=== PATIENT | female | born 1965 | race Native Hawaiian/Other Pacific Islander ===

== ENCOUNTER 2016-12-25 14:24 | Emergency (ER) | payer OTHER ==
[~2016-12-25] VITALS: Ht 157.5 cm; Wt 81.6 kg
[~2016-12-25 14:24] MED LIST: ALTOPREV20 MG PO; ATEN50TA36 PO; CLARITIN10 MG PO; LISITAB PO; METF500T PO
[2016-12-25 16:09] LABS: PLATELET COUNT 232 K/uL (152-353)
[2016-12-25 16:12] LABS: POTASSIUM 3.5 mmol/L (3.6-5.2)
[2016-12-25 18:13] VITALS: BP 104/55; TEMP 97.4
== END 2016-12-25 18:14 | disposition home or self-care (01) ==
LOC: ED 14:24
DX: K80.20 Calculus of gallbladder without cholecystitis without obstruction (principal)
CPT/HCPCS: 36415; 80053; 85027; 96360; 99284; Q9963

== ENCOUNTER 2017-01-02 09:11 | Day surgery (SDC) | payer OTHER ==
[~2017-01-02] VITALS: Ht 30.5 cm; Wt 0.5 kg
[2017-01-02 10:31] LABS: PLATELET COUNT 302 K/uL (152-353)
[2017-01-02 11:09] LABS: POTASSIUM 3.7 mmol/L (3.6-5.2); SODIUM 135 mmol/L (136-145)
== END 2017-01-02 13:52 | disposition home or self-care (01) ==
LOC: OR 09:11
PROVIDERS: Student in an Organized Health Care Education/Training Program
PROC: 0FT44ZZ Resection of Gallbladder, Percutaneous Endoscopic Approach (ICD-10-PCS; principal; 2017-01-02)
DX: K80.10 Calculus of gallbladder with chronic cholecystitis without obstruction (principal)
CPT/HCPCS: 80053; 85027; 85610; 85730; J0690; J1170; J2001; J2405; J2704; J2710; J3010; J3490

== ENCOUNTER 2019-02-19 09:49 | Outpatient (CLI) | payer OTHER | END 2019-02-19 23:43 | disposition home or self-care (01) | LOC: US 09:49 | DX: R10.31 Right lower quadrant pain (principal) ==

== ENCOUNTER 2019-04-09 13:14 | Outpatient (CLI) | payer OTHER | END 2019-04-09 23:19 | disposition home or self-care (01) | LOC: RAD 13:14 | DX: M54.9 Dorsalgia, unspecified (principal); F41.9 Anxiety disorder, unspecified; G47.00 Insomnia, unspecified ==

== ENCOUNTER 2019-11-23 20:33 | Emergency (ER) | payer OTHER ==
[~2019-11-23] VITALS: Ht 157.5 cm; Wt 81.6 kg
[2019-11-23 21:56] LABS: PLATELET COUNT 241 K/uL (152-353)
[2019-11-23 22:04] LABS: POTASSIUM 3.7 mmol/L (3.6-5.2); SODIUM 139 mmol/L (136-145)
[2019-11-23 22:39] VITALS: BP 118/56; TEMP 98.7
== END 2019-11-23 22:42 | disposition home or self-care (01) ==
LOC: ED 20:33
PROVIDERS: Emergency Medicine
DX: R07.89 Other chest pain (principal); K21.9 Gastro-esophageal reflux disease without esophagitis
CPT/HCPCS: 80053; 82550; 82553; 84484; 85027; 93005; 99283

== ENCOUNTER 2020-04-30 08:35 | Outpatient (CLI) | payer OTHER | END 2020-04-30 19:27 | disposition home or self-care (01) | LOC: RAD 08:35 | DX: E11.9 Type 2 diabetes mellitus without complications (principal); I10 Essential (primary) hypertension; K21.9 Gastro-esophageal reflux disease without esophagitis; E78.5 Hyperlipidemia, unspecified; M25.519 Pain in unspecified shoulder; M54.9 Dorsalgia, unspecified; M41.9 Scoliosis, unspecified; G62.9 Polyneuropathy, unspecified ==

== ENCOUNTER 2022-08-15 10:33 | Outpatient (CLI) | payer OTHER | END 2022-08-15 19:23 | disposition home or self-care (01) | LOC: RAD 10:33 | PROVIDERS: ATTEND Nurse Practitioner Family | DX: M54.2 Cervicalgia (principal); M54.12 Radiculopathy, cervical region; M79.601 Pain in right arm ==

== ENCOUNTER 2022-11-16 03:59 | Emergency (ER) | payer OTHER ==
[~2022-11-16] VITALS: Ht 157.5 cm; Wt 71.2 kg
[2022-11-16 04:05] VITALS: TEMP 97.2
[2022-11-16 05:58] LABS: PLATELET COUNT 277 K/uL (152-353)
[2022-11-16 06:10] LABS: POTASSIUM 3.9 mmol/L (3.6-5.2)
[2022-11-16 06:17] LABS: PARTIAL THROMBOPLASTIN TIME 26.1 SECONDS (23.9-36.7)
[2022-11-16 07:51] VITALS: BP 132/64
== END 2022-11-16 07:55 | disposition home or self-care (01) ==
LOC: ED 03:59
PROVIDERS: Emergency Medicine
DX: M54.9 Dorsalgia, unspecified (principal); E13.9 Other specified diabetes mellitus without complications; E78.00 Pure hypercholesterolemia, unspecified; I10 Essential (primary) hypertension
CPT/HCPCS: 36415; 80053; 84484; 85027; 85610; 85730; 93005; 96374; 99284; J1885